=== PATIENT | male | born 1970 | race Two or more races ===

== ENCOUNTER 2021-01-11 14:12 | Inpatient (IN) | payer MEDICAID ==
[~2021-01-11] VITALS: Ht 172.7 cm; Wt 71.0 kg
[2021-01-11 16:00] VITALS: BP 159/85
[2021-01-11] MEDS ORDERED: MORPHINE SULF INJ 2 MG/ML SYRINGE 1ML IV PRN (16:30)
[2021-01-11] MEDS ORDERED: NITROGLYCERIN 0.4 MG SL TAB SL PRN (16:30)
[2021-01-11] MEDS ORDERED: ATOR20TA50 PO (17:30)
[2021-01-11] MEDS ORDERED: AML5T PO (17:30)
[2021-01-11] MEDS ORDERED: ALOG1TAB2 PO (17:30)
[2021-01-11] MEDS ORDERED: SEVE800T8 PO (17:30)
[2021-01-11] MEDS ORDERED: CALC667C PO (17:30)
[2021-01-11] MEDS: CALCIUM ACETATE 667 MG CAP PO SCH (17:59)
[2021-01-11] MEDS: SEVELAMER 800 MG TAB PO SCH (18:00)
[2021-01-11] MEDS: HYDROcodone-ACET 5/325MG TAB PO PRN (18:00)
[2021-01-11 19:54] LABS: Basophils # (auto) 0.1 10 ^3/uL (0-0.2); Basophils % (auto) 0.9 % (0.0-2.0); Eosinophils # (auto) 0.1 10 ^3/uL (0-0.8); Eosinophils % (auto) 1.4 % (0.0-7.0); Hematocrit 25.9 % (41.0-53.0); Hemoglobin 9.2 g/dL (13.5-17.5); Lymphocytes # (auto) 0.9 10 ^3/uL (0.4-5.4); Lymphocytes % (auto) 11.5 % (10.0-50.0); Mean Corpuscular Hemoglobin 31.6 pg (28.0-32.0); Mean Corpuscular Hgb Conc. 35.4 g/dL (32.0-36.0); Mean Corpuscular Volume 89.2 fL (80.0-100.0); Monocytes # (auto) 0.5 10 ^3/uL (0-1.3); Monocytes % (auto) 6.1 % (0.0-12.0); Neutrophils # (auto) 6.4 10 ^3/uL (1.6-8.6); Neutrophils % (auto) 80.1 % (37.0-80.0); Platelet Count (auto) 230 10^3/uL (140-450); Red Cell Distribution Width 14.6 % (11.8-14.3)
[2021-01-11 20:14] LABS: INR 1.03 (0.9-1.15)
[2021-01-11 20:20] VITALS: BP 156/85
[2021-01-11 20:27] LABS: Albumin 3.2 g/dL (3.4-5.0); Calcium 7.9 mg/dL (8.5-10.1)
[2021-01-11 20:31] LABS: BUN/Creatinine Ratio 5.8; Bilirubin, Total 0.4 mg/dL (0.2-1.0); Total Protein 6.8 g/dL (6.4-8.2); Uric Acid 4.9 mg/dL (3.5-7.2)
[2021-01-11] MEDS: SODIUM ZIRCONIUM CYCL 10 GM PAK PO SCH (21:08)
[2021-01-11] MEDS: LATANOPROST 0.005 % OPTH(EYE) SOL 2.5ML EACHEYE SCH (21:58)
[2021-01-11 22:00] VITALS: BP 156/85
[2021-01-11] MEDS: ATORVASTATIN 20 MG TAB PO SCH (22:00)
[2021-01-11] MEDS ORDERED: DEXTROSE (50%) 50ML SYRG IV ONE (22:30)
[2021-01-11] MEDS ORDERED: CALCIUM GLUC 4.65meq/50ml D5AE 50 ML IV ONE (22:30)
[2021-01-11] MEDS ORDERED: InsuLIN REG 1unit/0.01ml Soln (100units/ml) IV ONE (22:30)
[2021-01-11] MEDS ORDERED: SODIUM BICARBONATE 8.4 % INJ 50ML VIAL IV ONE (22:30)
[2021-01-12] VITALS (7 sets, daily range): BP systolic 141–185; BP diastolic 78–93
[2021-01-12] MEDS ORDERED: FUROSEMIDE 40 MG/4 ML VIAL IV ONE (04:30)
[2021-01-12] MEDS: SODIUM ZIRCONIUM CYCL 10 GM PAK PO SCH ×3 (05:53→20:36)
[2021-01-12 07:36] LABS: Basophils # (auto) 0.1 10 ^3/uL (0-0.2); Basophils % (auto) 0.7 % (0.0-2.0); Eosinophils # (auto) 0 10 ^3/uL (0-0.8); Eosinophils % (auto) 0.2 % (0.0-7.0); Hematocrit 26.6 % (41.0-53.0); Hemoglobin 8.9 g/dL (13.5-17.5); Lymphocytes # (auto) 0.4 10 ^3/uL (0.4-5.4); Lymphocytes % (auto) 4.2 % (10.0-50.0); Mean Corpuscular Hemoglobin 29.7 pg (28.0-32.0); Mean Corpuscular Hgb Conc. 33.5 g/dL (32.0-36.0); Mean Corpuscular Volume 88.7 fL (80.0-100.0); Monocytes # (auto) 0.2 10 ^3/uL (0-1.3); Monocytes % (auto) 2.5 % (0.0-12.0); Neutrophils # (auto) 9.3 10 ^3/uL (1.6-8.6); Neutrophils % (auto) 92.4 % (37.0-80.0); Platelet Count (auto) 245 10^3/uL (140-450); Red Cell Distribution Width 14.3 % (11.8-14.3); White Blood Cell 10.1 10^3/uL (4.4-10.8)
[2021-01-12 07:52] LABS: Albumin 3.3 g/dL (3.4-5.0); Calcium 7.9 mg/dL (8.5-10.1)
[2021-01-12 07:55] LABS: BUN/Creatinine Ratio 6.2; Bilirubin, Total 0.4 mg/dL (0.2-1.0)
[2021-01-12] MEDS: SEVELAMER 800 MG TAB PO SCH ×3 (08:00→18:21)
[2021-01-12] MEDS: CALCIUM ACETATE 667 MG CAP PO SCH ×3 (08:00→18:21)
[2021-01-12] MEDS: HYDROcodone-ACET 5/325MG TAB PO PRN ×2 (11:13→20:36)
[2021-01-12] MEDS ORDERED: InsuLIN REG 1unit/0.01ml Soln (100units/ml) IV ONE (11:15)
[2021-01-12] MEDS ORDERED: DEXTROSE (50%) 50ML SYRG IV ONE (11:15)
[2021-01-12] MEDS: LISINOPRIL 20 MG TAB PO SCH (12:41)
[2021-01-12] MEDS: ENOXAPARIN SOD 30 MG/0.3 ML SYRINGE SC SCH (12:42)
[2021-01-12] MEDS: ASPirin-EC 81 mg tab PO SCH (12:42)
[2021-01-12 17:54] LABS: BUN/Creatinine Ratio 5.1; Calcium 8.5 mg/dL (8.5-10.1); Potassium 5.1 mmol/L (3.5-5.1)
[2021-01-12] MEDS: LATANOPROST 0.005 % OPTH(EYE) SOL 2.5ML EACHEYE SCH (23:07)
[2021-01-12] MEDS: ATORVASTATIN 20 MG TAB PO SCH (23:07)
[2021-01-13] MEDS: HYDROcodone-ACET 5/325MG TAB PO PRN ×3 (04:39→21:53)
[2021-01-13 05:00] VITALS: BP 162/97
[2021-01-13] MEDS: SODIUM ZIRCONIUM CYCL 10 GM PAK PO SCH ×3 (06:16→20:04)
[2021-01-13 06:32] LABS: Basophils # (auto) 0.1 10 ^3/uL (0-0.2); Basophils % (auto) 1.1 % (0.0-2.0); Eosinophils # (auto) 0.2 10 ^3/uL (0-0.8); Eosinophils % (auto) 2.3 % (0.0-7.0); Hematocrit 29.2 % (41.0-53.0); Hemoglobin 9.7 g/dL (13.5-17.5); Lymphocytes # (auto) 1.6 10 ^3/uL (0.4-5.4); Lymphocytes % (auto) 22.7 % (10.0-50.0); Mean Corpuscular Hemoglobin 29.8 pg (28.0-32.0); Mean Corpuscular Hgb Conc. 33.1 g/dL (32.0-36.0); Mean Corpuscular Volume 89.9 fL (80.0-100.0); Monocytes # (auto) 0.6 10 ^3/uL (0-1.3); Monocytes % (auto) 8.2 % (0.0-12.0); Neutrophils # (auto) 4.6 10 ^3/uL (1.6-8.6); Neutrophils % (auto) 65.7 % (37.0-80.0); Platelet Count (auto) 263 10^3/uL (140-450); Red Blood Cells 3.25 10^6/uL (4.5-5.90); Red Cell Distribution Width 14.5 % (11.8-14.3)
[2021-01-13 06:47] LABS: INR 1.06 (0.9-1.15); Partial Thromboplastin Time 31.4 sec (23.0-31.2)
[2021-01-13 06:56] LABS: BUN/Creatinine Ratio 5.6; Calcium 8.1 mg/dL (8.5-10.1); Potassium 4.6 mmol/L (3.5-5.1)
[2021-01-13] MEDS ORDERED: LIDOCAINE 2%HCL (LOCAL ANESTH.) INJ 20ML MDV ONE (07:10)
[2021-01-13] MEDS ORDERED: ANGIOMAX 250 MG VIAL IV ONE (07:31)
[2021-01-13] MEDS ORDERED: HEPARIN SODIUM (PORCINE) 5000 UNITS/ML 1ML VIAL ONE (07:31)
[2021-01-13] MEDS ORDERED: MIDAZOLAM HCL 1MG/1ML-2 ML VIAL ONE (07:32)
[2021-01-13] MEDS ORDERED: NITROGLYCERIN 5MG/ML 10ML VIAL IV ONE (07:32)
[2021-01-13] MEDS ORDERED: VERAPAMIL 2.5MG/ML INJ 2ML VIAL IV ONE (07:32)
[2021-01-13] MEDS ORDERED: fentaNYL CITRATE 100 MCG/2 ML VL ONE (07:32)
[2021-01-13] MEDS ORDERED: SODIUM CHL 0.9% 50 ML ONE (07:33)
[2021-01-13] MEDS ORDERED: IODIXANOL 320MG/ML 100ML BTL IV ONE (07:36)
[2021-01-13] MEDS: CARVEDILOL 3.125 MG TAB PO SCH ×2 (08:58→21:48)
[2021-01-13] MEDS: ASPirin-EC 81 mg tab PO SCH (08:58)
[2021-01-13] MEDS: LISINOPRIL 20 MG TAB PO SCH (08:58)
[2021-01-13] MEDS ORDERED: hydrALAZINE HCL 20 MG/ML VL IV ONE (09:30)
[2021-01-13] MEDS ORDERED: hydrALAZINE HCL 25 MG TAB PO PRN (09:30)
[2021-01-13] MEDS: SEVELAMER 800 MG TAB PO SCH ×3 (11:00→19:12)
[2021-01-13] MEDS: ENOXAPARIN SOD 30 MG/0.3 ML SYRINGE SC SCH (11:00)
[2021-01-13] MEDS: CALCIUM ACETATE 667 MG CAP PO SCH ×3 (11:00→19:12)
[2021-01-13 13:00] VITALS: BP 148/75
[2021-01-13 16:54] VITALS: BP 157/86
[2021-01-13] MEDS ORDERED: CAR3125T PO (19:31)
[2021-01-13] MEDS ORDERED: LISI-646 PO (19:31)
[2021-01-13] MEDS ORDERED: ASPI-543 PO (19:31)
[2021-01-13 20:00] VITALS: BP 155/86
[2021-01-13] MEDS: LATANOPROST 0.005 % OPTH(EYE) SOL 2.5ML EACHEYE SCH (21:47)
[2021-01-13] MEDS: ATORVASTATIN 20 MG TAB PO SCH (21:48)
[2021-01-13 21:51] VITALS: BP 155/86
[2021-01-14 05:07] VITALS: BP 152/80
[2021-01-14] MEDS: SODIUM ZIRCONIUM CYCL 10 GM PAK PO SCH (05:58)
[2021-01-14] MEDS: HYDROcodone-ACET 5/325MG TAB PO PRN (05:58)
[2021-01-14 07:47] LABS: Basophils # (auto) 0.1 10 ^3/uL (0-0.2); Basophils % (auto) 0.9 % (0.0-2.0); Eosinophils # (auto) 0.2 10 ^3/uL (0-0.8); Eosinophils % (auto) 2.1 % (0.0-7.0); Hematocrit 25.1 % (41.0-53.0); Hemoglobin 8.5 g/dL (13.5-17.5); Lymphocytes # (auto) 1.1 10 ^3/uL (0.4-5.4); Lymphocytes % (auto) 12.4 % (10.0-50.0); Mean Corpuscular Hemoglobin 30.1 pg (28.0-32.0); Mean Corpuscular Hgb Conc. 33.9 g/dL (32.0-36.0); Mean Corpuscular Volume 88.9 fL (80.0-100.0); Monocytes # (auto) 0.6 10 ^3/uL (0-1.3); Monocytes % (auto) 6.6 % (0.0-12.0); Platelet Count (auto) 232 10^3/uL (140-450); Red Blood Cells 2.82 10^6/uL (4.5-5.90); Red Cell Distribution Width 14.8 % (11.8-14.3)
[2021-01-14 08:05] LABS: BUN/Creatinine Ratio 5.6; Calcium 8.2 mg/dL (8.5-10.1); Potassium 5.1 mmol/L (3.5-5.1)
[2021-01-14] MEDS: SEVELAMER 800 MG TAB PO SCH ×2 (08:32→12:05)
[2021-01-14] MEDS: CALCIUM ACETATE 667 MG CAP PO SCH ×2 (08:32→12:05)
[2021-01-14 09:00] VITALS: BP 146/83
[2021-01-14 11:19] VITALS: BP 146/83
[2021-01-14] MEDS: ENOXAPARIN SOD 30 MG/0.3 ML SYRINGE SC SCH (11:53)
[2021-01-14] MEDS: ASPirin-EC 81 mg tab PO SCH (12:05)
[2021-01-14] MEDS: LISINOPRIL 20 MG TAB PO SCH (12:05)
[2021-01-14] MEDS: CARVEDILOL 3.125 MG TAB PO SCH (12:06)
== END 2021-01-14 13:00 | disposition home health service (06) | DRG 192 ==
LOC: TELE-CENTR 15:50
PROVIDERS: ADMIT Specialist; ATTEND Specialist
PROC: 4A023N7 Measurement of Cardiac Sampling and Pressure, Left Heart, Percutaneous Approach (ICD-10-PCS; principal; 2021-01-13)
PROC: B211YZZ Fluoroscopy of Multiple Coronary Arteries using Other Contrast (ICD-10-PCS; 2021-01-13)
PROC: B215YZZ Fluoroscopy of Left Heart using Other Contrast (ICD-10-PCS; 2021-01-13)
DX: I13.2 Hypertensive heart and chronic kidney disease with heart failure and with stage 5 chronic kidney disease, or end stage renal disease (principal); I25.10 Atherosclerotic heart disease of native coronary artery without angina pectoris; I42.8 Other cardiomyopathies; N18.6 End stage renal disease; Z99.2 Dependence on renal dialysis; E78.5 Hyperlipidemia, unspecified; N25.81 Secondary hyperparathyroidism of renal origin; E87.5 Hyperkalemia; E11.22 Type 2 diabetes mellitus with diabetic chronic kidney disease; N40.0 Benign prostatic hyperplasia without lower urinary tract symptoms; I25.2 Old myocardial infarction; Z20.822 Contact with and (suspected) exposure to COVID-19; I50.21 Acute systolic (congestive) heart failure; E44.1 Mild protein-calorie malnutrition
CPT/HCPCS: 36415; 71045; 80048; 80053; 80061; 82962; 84443; 84550; 85025; 85610; 85730; 87081; 90935; 93306; 93458; 99152; G0378; J0610; J1815; J2250; J3490; Q9967